=== PATIENT | male | born 1970 | race Caucasian/White ===

== ENCOUNTER → 2018-01-09 11:37 | Outpatient (REF) | payer MEDICAID, SELFPAY ==
[2018-01-09 14:32] LABS: ALT 38 U/L (12-78); AST 46 U/L (15-37); Albumin 4.2 g/dL (3.4-5.0); Alkaline Phosphatase 92 U/L (46-116); Anion Gap 8.7 mmol/L (3-11); BUN 14 mg/dL (7-18); Bilirubin, Total 0.7 mg/dL (0.2-1.0); CO2 25.3 mmol/L (21.0-32.0); CREATININE 1.14 mg/dL (0.70-1.30); Calcium 8.8 mg/dL (8.5-10.1); Chloride 107 mmol/L (98-107); Cholesterol 183 mg/dL (50-200); Glucose 114 mg/dL (70-100); HDL Cholesterol 37 mg/dL (40-60); LDL CHOLESTEROL 120 mg/dL (<100); Sodium 141 mmol/L (136-145); Total Protein 7.8 g/dL (6.4-8.2); Triglyceride 197 mg/dL (30-150)
== END ==
LOC: NCHCN 11:37
PROVIDERS: PCP Nurse Practitioner; Visit Provider Nurse Practitioner
DX: I10 Essential (primary) hypertension (principal); E88.81 Metabolic syndrome and other insulin resistance
CPT/HCPCS: 80053; 80061; 83721

== ENCOUNTER 2018-10-18 19:30 | Emergency (ER) | payer MEDICAID, SELFPAY ==
[2018-10-18 19:34] VITALS: BP 145/105; PULSE 85; RESP 18; TEMP 36.5; O2SAT 97
--- NOTE | 2018-10-18 19:47 | W.ED.GENAD ---
Discharge Plan Disposition Patient Disposition: HOME Condition: Fair Discharge Details Chief Complaint: Orthopedic Clinical Impression: Sprain of right upper arm Primary Care Provider: Anjali Gómez ED Provider: Dorothy lFores Home Meds and New Rx's Prescriptions: Continued aspirin 325 MG tablet 1 - 2 tab PO PRN PRNRF: 0 lisinopril 40 MG tablet 20 mg PO DAILY RF: 0 ibuprofen 600 mg Tablet 600 mg PO TID PRNRF: 0 Discharge Instructions Instructions: Wrist Sprain (ED) Additional Instructions: Encourage rest, ice, elevation. Tylenol and/or Ibuprofen as needed for discomfort. Please use brace until reevaluated by primary care, please call them tomorrow to schedule appointment. Avoid activities that cause increased pain. If you develop fevers/chills, increased pain or other new/worsening symptoms please seek care urgently once again. Stand Alone Forms: Work Release Referrals: Anjali Gómez [Primary Care Provider] - Discharge Data Discharge Date/Time-TO BE ENTERED AT DEPARTURE: 10/18/18 20:26 Medical Decision Making Patient is a 48-year-old [id number] male presenting today with chief complaint of right forearm pain. He reports that yesterday, while at work, he began having pain on the dorsal radial aspect of his distal forearm. Patient has a notable defined area of swelling, proximal 4 cm x 3 cm. No erythema or warmth. This area of fluctuance. I did evaluate with an ultrasound did not see any evidence of fluid collection to suggest an abscess. Patient does have good range of motion of the wrist and hand. Pain is maximal with extension of the thumb against resistance. This causes increased pain at the area of swelling. No pain with palpation over the medial or lateral epicondyle of the elbow, full range of motion without pain. Patient is nontoxic-appearing. And concern for possible tendon rupture although he is not having any pain at the insertion site. Also discussed localized area of swelling from trauma or overuse. Patient will be placed in a thumb spica to immobilize and give small amount of compression. I encouraged rice. Advised follow-up with primary care for reevaluation. We discussed activities to avoid. Work note was given. We discussed new/worsening symptoms when to seek care urgently once again. All his questions and concerns were addressed and he is in agreement with this plan. HPI General Mode of arrival: ambulatory. Date/Time Provider Initiated Documentation: 10/18/18 19:38. Limitations to Documentation: no limitations. Information obtained by: patient, family (accompanied by significant other) and RN notes reviewed. History of Present Illness 48 year old M presents to the emergency department with the chief complaint of right forearm swelling, described as moderate, with intensity rated at 7. Quality is described as aching, and is localized to the right and upper extremity. Patient reports no radiation. Patient started experiencing this day(s) (1) and it has been constant. Immobilization improves symptom(s), Movement worsens symptoms (worse with extension of thumb and wrist) . Patient notes no other symptoms.. Patient did receive the following treatments prior to arrival, none Related Data Home Medications Medication Instructions Recorded Confirmed aspirin 1 - 2 tab PO PRN PRN 03/16/14 12/23/16 lisinopril 20 mg PO DAILY 12/02/14 10/18/18 ibuprofen 600 mg PO TID PRN 10/18/18 10/18/18 Allergies Allergy/AdvReac Type Severity Reaction Status Date / Time No Known Allergies Allergy Unverified 12/23/16 12:28 General Stated Complaint: Orthopedic ALEXANDR: 4 Review of Systems Constitutional Reports as per HPI, Denies chills, Denies fever(s), Denies headache(s) and Denies weakness ENT Denies headache(s) Cardiovascular Reports as per HPI Respiratory Reports as per HPI and Denies cough Musculoskeletal Reports as per HPI and Denies tingling Integumentary/Breasts Reports as per HPI, Denies rash and Denies wounds Neurologic Reports as per HPI, Denies headache(s), Denies tingling, Denies paresthesias and Denies weakness [facility] Medical History Hypertension (Chronic) Surgical History Colonoscopy - MAC (02/03/16) Social History Smoking/Tobacco Use Status: Former Tobacco Use Alcohol Intake: current Drug use: Never Substance use type: does not use Do you feel safe at home: Yes Do you feel safe in your relationship?: Yes Exam Const General: cooperative, healthy appearing, comfortable, no acute distress, well developed and well groomed Nutritional Appearance: average body habitus and well nourished Orientation: alert and awake Resp Effort & Inspection: normal respiratory effort, able to speak in complete sentences and no respiratory distress Cardio Rate: regular rate Rhythm: regular rhythm Skin General skin exam: no rashes or lesions noted Lesions: no lesions Rashes: no rashes Trauma: no lacerations or abrasions Neuro General: alert and awake Cognition: normal cognition Speech: speech normal Gait: normal gait Motor: muscle tone normal throughout Sensory Exam: no sensory deficits noted Extrem Right upper extremity: full ROM, normal capillary refill, no joint enlargement, elbow/forearm (Swelling as above to radial aspect dorsal forearm) Details: tenderness, swelling and normal ROM; no unusual warmth, no abrasions, no lacerations, no ecchymosis, no crepitus and no deformity, wrist Details: normal to inspection and normal ROM (Patient does have discomfort with extension against resistance); no tenderness and no swelling and hand Details: normal to inspection, neuromotor exam normal and neurosensory exam normal; abnormal to inspection (Patient has a localized area approximately 4 cm x 3 cm of localized swellin) Psych Appearance: grossly normal and well kempt Mental Status: mental status grossly normal Speech and Movement: speech and movement normal Course Vital Signs Temperature 36.5 C 10/18/18 19:34 Pulse 85 10/18/18 19:34 Respiratory Rate 18 10/18/18 19:34 Blood Pressure 145/105 H 10/18/18 19:34 Pulse Oximetry 97 10/18/18 19:34 Temperature 36.5 C 10/18/18 19:34 Temperature Source Tympanic 10/18/18 19:34 Pulse 85 10/18/18 19:34 Respiratory Rate 18 10/18/18 19:34 Respiratory Effort Non-Labored 10/18/18 19:43 Blood Pressure 145/105 H 10/18/18 19:34 Blood Pressure Position Sitting 10/18/18 19:34 Pulse Oximetry 97 10/18/18 19:34 Oxygen Delivery Method Room Air 10/18/18 19:34 Oxygen Flow Rate 0 10/18/18 19:34 Pain Level 7 10/18/18 19:34 Comment 10/18/18 19:34
[2018-10-18 20:23] VITALS: BP 145/105; PULSE 85; RESP 18; O2SAT 97
--- NOTE | 2018-10-18 20:26 | ED.GENADUL_ITS ---
Discharge Plan Disposition Patient Disposition: HOME Condition: Fair Discharge Details Chief Complaint: Orthopedic Clinical Impression: Sprain of right upper arm Primary Care Provider: Anjali Gómez ED Provider: Dorothy Flores Home Meds and New Rx's Prescriptions: Continued aspirin 325 MG tablet 1 - 2 tab PO PRN PRNRF: 0 lisinopril 40 MG tablet 20 mg PO DAILY RF: 0 ibuprofen 600 mg Tablet 600 mg PO TID PRNRF: 0 Discharge Instructions Instructions: Wrist Sprain (ED) Additional Instructions: Encourage rest, ice, elevation. Tylenol and/or Ibuprofen as needed for discomfort. Please use brace until reevaluated by primary care, please call them tomorrow to schedule appointment. Avoid activities that cause increased pain. If you develop fevers/chills, increased pain or other new/worsening symptoms please seek care urgently once again. Stand Alone Forms: Work Release Referrals: Anjali Gómez [Primary Care Provider] - Discharge Data Discharge Date/Time-TO BE ENTERED AT DEPARTURE: 10/18/18 20:26 Medical Decision Making Patient is a 48-year-old [id number] male presenting today with chief complaint of right forearm pain. He reports that yesterday, while at work, he began having pain on the dorsal radial aspect of his distal forearm. Patient has a notable defined area of swelling, proximal 4 cm x 3 cm. No erythema or warmth. This area of fluctuance. I did evaluate with an ultrasound did not see any evidence of fluid collection to suggest an abscess. Patient does have good range of motion of the wrist and hand. Pain is maximal with extension of the thumb against resistance. This causes increased pain at the area of swelling. No pain with palpation over the medial or lateral epicondyle of the elbow, full range of motion without pain. Patient is nontoxic-appearing. And concern for possible tendon rupture although he is not having any pain at the insertion site. Also discussed localized area of swelling from trauma or overuse. Patient will be placed in a thumb spica to immobilize and give small amount of compression. I encouraged rice. Advised follow-up with primary care for reevaluation. We discussed activities to avoid. Work note was given. We discussed new/worsening symptoms when to seek care urgently once again. All his questions and concerns were addressed and he is in agreement with this plan. HPI General Mode of arrival: ambulatory . Date/Time Provider Initiated Documentation: 10/18/18 19:38 . Limitations to Documentation: no limitations . Information obtained by: patient, family (accompanied by significant other) and RN notes reviewed . History of Present Illness 48 year old M presents to the emergency department with the chief complaint of right forearm swelling, described as moderate, with intensity rated at 7. Quality is described as aching, and is localized to the right and upper extremity. Patient reports no radiation. Patient started experiencing this day(s) (1) and it has been constant. Immobilization improves symptom(s), Movement worsens symptoms (worse with extension of thumb and wrist) . Patient notes no other symptoms.. Patient did receive the following treatments prior to arrival, none Related Data Home Medications Medication Instructions Recorded Confirmed aspirin 1 - 2 tab PO PRN PRN 03/16/14 12/23/16 lisinopril 20 mg PO DAILY 12/02/14 10/18/18 ibuprofen 600 mg PO TID PRN 10/18/18 10/18/18 Allergies Allergy/AdvReac Type Severity Reaction Status Date / Time No Known Allergies Allergy Unverified 12/23/16 12:28 General Stated Complaint: Orthopedic ALEXANDR: 4 Review of Systems Constitutional Reports as per HPI, Denies chills, Denies fever(s), Denies headache(s) and Denies weakness ENT Denies headache(s) Cardiovascular Reports as per HPI Respiratory Reports as per HPI and Denies cough Musculoskeletal Reports as per HPI and Denies tingling Integumentary/Breasts Reports as per HPI, Denies rash and Denies wounds Neurologic Reports as per HPI, Denies headache(s), Denies tingling, Denies paresthesias and Denies weakness [facility] Medical History Hypertension (Chronic) Surgical History Colonoscopy - MAC (02/03/16) Social History Smoking/Tobacco Use Status: Former Tobacco Use Alcohol Intake: current Drug use: Never Substance use type: does not use Do you feel safe at home: Yes Do you feel safe in your relationship?: Yes Exam Const General: cooperative, healthy appearing, comfortable, no acute distress, well developed and well groomed Nutritional Appearance: average body habitus and well nourished Orientation: alert and awake Resp Effort & Inspection: normal respiratory effort, able to speak in complete sentences and no respiratory distress Cardio Rate: regular rate Rhythm: regular rhythm Skin General skin exam: no rashes or lesions noted Lesions: no lesions Rashes: no rashes Trauma: no lacerations or abrasions Neuro General: alert and awake Cognition: normal cognition Speech: speech normal Gait: normal gait Motor: muscle tone normal throughout Sensory Exam: no sensory deficits noted Extrem Right upper extremity: full ROM, normal capillary refill, no joint enlargement, elbow/forearm (Swelling as above to radial aspect dorsal forearm) Details: tenderness, swelling and normal ROM; no unusual warmth, no abrasions, no lacerations, no ecchymosis, no crepitus and no deformity, wrist Details: normal to inspection and normal ROM (Patient does have discomfort with extension agains t resistance); no tenderness and no swelling and hand Details: normal to inspection, neuromotor exam normal and neurosensory exam normal; abnormal to inspection (Patient has a localized area approximately 4 cm x 3 cm of localized swellin) Psych Appearance: grossly normal and well kempt Mental Status: mental status grossly normal Speech and Movement: speech and movement normal Course Vital Signs Temperature 36.5 C 10/18/18 19:34 Pulse 85 10/18/18 19:34 Respiratory Rate 18 10/18/18 19:34 Blood Pressure 145/105 H 10/18/18 19:34 Pulse Oximetry 97 10/18/18 19:34 Temperature 36.5 C 10/18/18 19:34 Temperature Source Tympanic 10/18/18 19:34 Pulse 85 10/18/18 19:34 Respiratory Rate 18 10/18/18 19:34 Respiratory Effort Non-Labored 10/18/18 19:43 Blood Pressure 145/105 H 10/18/18 19:34 Blood Pressure Position Sitting 10/18/18 19:34 Pulse Oximetry 97 10/18/18 19:34 Oxygen Delivery Method Room Air 10/18/18 19:34 Oxygen Flow Rate 0 10/18/18 19:34 Pain Level 7 10/18/18 19:34 Comment 10/18/18 19:34
== END 2018-10-18 20:26 | disposition home or self-care (01) ==
PROVIDERS: Emergency Provider Physician Assistant; PCP Nurse Practitioner
DX: S56.911A Strain of unspecified muscles, fascia and tendons at forearm level, right arm, initial encounter (principal); X58.XXXA Exposure to other specified factors, initial encounter; Y99.0 Civilian activity done for income or pay
CPT/HCPCS: 99282; L3807

== ENCOUNTER 2019-05-22 15:15 | Emergency (ER) | payer SELFPAY ==
[2019-05-22 15:29] VITALS: BP 106/69; PULSE 76; RESP 20; TEMP 36.8; O2SAT 96
--- NOTE | 2019-05-22 15:43 | DI.RAD_ITS ---
EXAM: XR HAND RT COMPLETE INDICATION: trauma, pain. COMPARISON: No exams were available for comparison TECHNIQUE: 2D digital imaging was performed. FINDINGS: No fracture or dislocation is seen. IMPRESSION: Negative right hand.
--- NOTE | 2019-05-22 16:20 | ED.GENADUL_ITS ---
Discharge Plan Disposition Patient Disposition: HOME Condition: Stable Discharge Details Chief Complaint: Orthopedic Clinical Impression: Hand pain Primary Care Provider: Anjali Gómez ED Provider: Shannan Fonseca Home Meds and New Rx's Prescriptions: No Action aspirin 325 MG tablet 1 - 2 tab PO PRN PRNRF: 0 lisinopril 40 MG tablet 20 mg PO DAILY RF: 0 ibuprofen 600 mg Tablet 600 mg PO TID PRNRF: 0 Discharge Instructions Instructions: Contusion in Adults (ED), Scaphoid Fracture (ED) Additional Instructions: I have concerned given your area of tenderness for possible scaphoid injury. I provided information regarding scaphoid fracture although there is no clear evidence you have a scaphoid fracture today this is my concern if you are not improving in the next 7 to 10 days. Have prompt follow-up with orthopedics in 1 week to rule out any scaphoid injury as discussed and for repeat x-rays. Wear splint for 1 week Or until able to be cleared by senior it specialist. Ice to the area for swelling. Motrin or Tylenol for discomfort. Rest activities as tolerated. Return for any worsening, concerns or alarming symptoms sooner if needed. Your x-ray of your hand today was normal Referrals: Terrence Matta MD [ [facility] STAFF PHYSICIAN] - Medical Decision Making This is a healthy 49-year-old patient presenting for complaints of right hand pain. Patient reports right hand pain after being struck by a telescoping ladder that slid striking him directly on the hand 2 days ago. This injury did occur at work. Patient was encouraged to have reevaluation as he was complaining of persistent pain today. Patient reports pain with specific range of motion's. Again points to the snuffbox as his maximum site of pain. Benign physical exam of the arm, mild pain at the snuffbox. No associated ligamentous findings. No flexion extension deficits. No sensation deficits. 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 X-ray today reveals EXAM: XR HAND RT COMPLETE INDICATION: trauma, pain. COMPARISON: No exams were available for comparison TECHNIQUE: 2D digital imaging was performed. FINDINGS: No fracture or dislocation is seen. IMPRESSION: Negative right hand. Given patient's site of pain I am concerned primarily with the snuffbox therefore wrist x-ray was ordered. Wrist: PROCEDURE INFORMATION: Exam: XR Right Wrist Exam date and time: 05/22/2019 4:39 PM Age: 49 years old Clinical indication: Injury or trauma; Initial encounter; Blunt trauma (contusions or hematomas; Wrist; Right TECHNIQUE: Imaging protocol: XR Right wrist. Views: 3 or more views. COMPARISON: CR XR HAND RT COMPLETE 12/14/2019 15:43 FINDINGS: Bones/joints: Unremarkable. Soft tissues: Unremarkable. IMPRESSION: No evidence for acute bony injury. If clinical symptoms persist recommend followup film in 7-10 days. Patient discharged in a thumb spica wrist splint. Encouraged reevaluation with orthopedics in 1 week for persistence of symptoms. Patient reports his understanding. Discussed concerns of possible scaphoid injury despite negative x-rays. Ervin encouraged. Orthopedic referral provided. Patient reports his understanding and agrees with plan of care. The patient was stable and requested discharge. Prior to discharge, my usual and customary return precautions were reviewed with the patient - this included follow-up instructions and reasons to return to the Emergency Department if conditions worsens, does not improve as expected, or other new concerns arise. HPI General Date/Time Provider Initiated Documentation: 05/22/19 15:33 . HPI Narrative: Is a 49-year-old patient who reports at work a large ladder slid, 1 of the telescoping metal pieces of the ladder fell directly onto his hand beneath striking his right hand. Patient points to the area of his snuffbox of maximum pain. Patient reports pain with specific range of motion. Patient denies open wounds. Patient denies any other sites of pain or injury. Injury occurred yesterday. Patient denies obvious numbness, tingling or weakness. No wrist pain or proximal complaints. Related Data Home Medications Medication Instructions Recorded Confirmed aspirin 1 - 2 tab PO PRN PRN 03/16/14 05/22/19 lisinopril 20 mg PO DAILY 12/02/14 05/22/19 ibuprofen 600 mg PO TID PRN 10/18/18 05/22/19 Allergies Allergy/AdvReac Type Severity Reaction Status Date / Time No Known Allergies Allergy Unverified 05/22/19 15:33 General Stated Complaint: Orthopedic ALEXANDR: 4 Review of Systems All systems reviewed & are unremarkable except as noted in HPI and below ENT Ears, Nose, Mouth, and Throat: Denies neck pain Musculoskeletal Musculoskeletal: Denies abnormal gait, Denies back pain, Denies deformity, Denies limited range of motion, Denies neck pain, Denies numbness and Denies tingling Integumentary/Breasts Skin/Breast: Denies wounds Neurologic Neurologic: Denies abnormal gait, Denies numbness, Denies tingling and Denies paresthesias [facility] Medical History Hypertension (Chronic) Social History Smoking/Tobacco Use Status: Former Tobacco Use Alcohol Intake: former Drug use: Never Substance use type: does not use Do you feel safe at home: Yes Do you feel safe in your relationship?: Yes Exam Narrative Exam Narrative: CONST: Healthy appearing patient, in no acute distress. Well hydrated. Alert and oriented. MUSCULOSKELETAL: Right arm: No elbow pain with palpation. Supination pronation intact at the elbow. Flexion extension intact at the elbow. No forearm pain with palpation. No wrist pain with palpation. Flexion extension intact at the wrist. No focal pain with palpation through the hand. Flexion extension intact at the wrist as well as the thumb. Nothing to indicate a ligamentous injury at this time. No swelling, ecchymosis or wounds. Sensation intact throughout the hand and wrist. 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 SKIN: Normal. Dry. No rashes. NEURO: Alert and awake. Speech clear. PSYCH: Normal affect. Cooperative. Course Vital Signs Vital signs: Vital Signs Temperature 36.8 C 05/22/19 15:29 Pulse 76 05/22/19 15:29 Respiratory Rate 05/22/19 15:29 Blood Pressure 106/69 05/22/19 15:29 Pulse Oximetry 96 05/22/19 15:29 Temperature 36.8 C 05/22/19 15:29 Temperature Source Skin 05/22/19 15:29 Pulse 76 05/22/19 15:29 Respiratory Rate 20 05/22/19 15:29 Respiratory Effort Non-Labored 05/22/19 15:32 Blood Pressure 106/69 05/22/19 15:29 Blood Pressure Position Sitting 05/22/19 15:29 Pulse Oximetry 96 05/22/19 15:29 Oxygen Delivery Method Room Air 05/22/19 15:29 Oxygen Flow Rate 0 05/22/19 15:29 Pain Level 0 05/22/19 15:29
--- NOTE | 2019-05-22 16:36 | DI.RAD_ITS ---
EXAM: XR WRIST RT COMPL NAVICULAR CLINICAL HISTORY: pain, injury TECHNIQUE: COMPARISON: No exams were available for comparison FINDINGS: Four views were obtained. Carpal alignment appears within normal limits. No fracture seen. IMPRESSION:
--- NOTE | 2019-05-22 16:54 | DI.VRAD_ITS ---
PROCEDURE INFORMATION: Exam: XR Right Wrist Exam date and time: 05/22/2019 4:39 PM Age: 49 years old Clinical indication: Injury or trauma; Initial encounter; Blunt trauma (contusions or hematomas; Wrist; Right TECHNIQUE: Imaging protocol: XR Right wrist. Views: 3 or more views. COMPARISON: CR XR HAND RT COMPLETE 12/14/2019 15:43 FINDINGS: Bones/joints: Unremarkable. Soft tissues: Unremarkable. IMPRESSION: No evidence for acute bony injury. If clinical symptoms persist recommend followup film in 7-10 days. Dictated and Authenticated by: Alondra Hunt MD. Ordering:KARLY Campbell MD
== END 2019-05-22 17:06 | disposition home or self-care (01) ==
PROVIDERS: Emergency Provider Physician Assistant; PCP Nurse Practitioner
DX: S69.81XA Other specified injuries of right wrist, hand and finger(s), initial encounter (principal); M79.641 Pain in right hand; W20.8XXA Other cause of strike by thrown, projected or falling object, initial encounter; Y99.0 Civilian activity done for income or pay; I10 Essential (primary) hypertension
CPT/HCPCS: 29125; 99284; 73110; 73130; 99283; L3807

== ENCOUNTER 2020-11-22 14:31 | Emergency (ER) | payer MEDICAID, SELFPAY ==
[2020-11-22] VITALS (75 sets, daily range): BP systolic 137–216; BP diastolic 94–134; PULSE 78–107; RESP 12–24; TEMP 36.3–36.6; O2SAT 95–97
--- NOTE | 2020-11-22 14:30 | RT.EKG_ITS ---
APPROVED REPORT Exam: Resting ECG Reason for Exam: weakness, dizzy Patient Location: E HR:99 bpm ECG Measurements Heart Rate 99 AXIS AZ 179 P 49 QRSd 100 QRS 21 QT 353 T 22 QTc 454 Conclusion Sinus rhythm...normal P axis, V-rate 60- 99
[2020-11-22] MEDS: Normal Saline 250 ML 500 ML IV (15:27)
[2020-11-22] MEDS: diazePAM 5 MG TAB PO (15:28)
[2020-11-22] MEDS: Labetalol 100 MG/20 ML VIAL 20 MG IVP (15:28)
[2020-11-22 15:32] LABS: Abs Immature Grans 0.08 10^3/uL (0.0-0.06); Absolute Basophil Count 0.05 10^3/uL (0.0-0.2); Absolute Eosinophil Count 0.25 10^3/uL (0.0-0.7); Absolute Lymphocyte Count 1.44 10^3/uL (1.2-3.4); Absolute Monocyte Count 0.58 10^3/uL (0.1-0.8); Absolute Neutrophil Count 6.13 10^3/uL (1.2-6.7); Basophils % 0.6; Eosinophils % 2.9; HCT 44.3 % (40.0-50.0); HGB 15.2 g/dL (13.5-17.5); Immature Grans % 0.9; Lymphocytes % 16.9; MCH 30.2 pg (27.0-33.0); MCHC 34.3 % (32.0-36.0); MCV 87.9 fL (80-95); MPV 10.6 fL (8.0-11.0); Monocytes % 6.8; Neutrophils % 71.9; Nucleated RBC 0 %; Platelet Count 176 10^3/uL (130-400); RBC 5.04 10^6/uL (4.36-5.78); RDW 12.8 % (11.8-14.1); RDW-SD 40.9 fL; WBC 8.53 10^3/uL (4.4-10.8)
[2020-11-22 15:49] LABS: ALT 107 U/L (16-63); AST 51 U/L (15-37); Alkaline Phosphatase 140 U/L (46-116); BUN 17 mg/dL (7-18); Bilirubin, Total 0.4 mg/dL (0.2-1.0); CREATININE 1.1 mg/dL (0.70-1.30); Calcium 8.7 mg/dL (8.5-10.1); Chloride 106 mmol/L (98-107); Glucose 101 mg/dL (74-106); Potassium 3.9 mmol/L (3.5-5.1); Sodium 143 mmol/L (136-145)
[2020-11-22 15:52] LABS: Troponin I < 0.05 ng/mL (<0.06)
--- NOTE | 2020-11-22 16:06 | W.ED.GENAD ---
Discharge Plan Disposition Patient Disposition: HOME Condition: Stable Discharge Details Clinical Impression: Hypertension, Anxiety, Elevated liver enzymes Primary Care Provider: Anjali Gómez ED Provider: Sarwat James Home Meds and New Rx's Prescriptions: Continued aspirin 325 MG tablet 1 - 2 tab PO PRN PRNRF: 0 lisinopril 40 MG tablet 20 mg PO DAILY RF: 0 ibuprofen 600 mg Tablet 600 mg PO TID PRNRF: 0 Discharge Instructions Instructions: Hypertension (ED), Anxiety (ED) Additional Instructions: Please take antihypertensive medication as prescribed. You need to make some lifestyle changes including cutting back on alcohol intake significantly. You need to reduce stress in your work life and maintain a healthy worklife balance. Please contact your primary care physician to arrange follow-up. Please be sure to request COVID-19 vaccination or seek vaccination at local pharmacy. Return to the ER for any worsening or new concerning symptoms. Referrals: Anjali Gómez [Primary Care Provider] - Discharge Data Discharge Date/Time-TO BE ENTERED AT DEPARTURE: 11/22/20 17:41 Medical Decision Making 16:12?- 50-year-old male with history of anxiety and hypertension, here with lightheadedness, generalized weakness, anxiety. Patient is hypertensive and tachycardic. Concern for hypertensive urgency versus anxiety attack. Patient was given labetalol 20 mg IV as well as Valium 5 mg p.o. Screening ECG was reviewed and interpreted by me: Sinus rhythm 99 bpm, normal axis, no STEMI, please see report. Labs reviewed and he does have transaminitis noted. I suspect this is secondary to alcohol use disorder. Blood pressure was reassessed at did improve after labetalol. Still hypertensive 180/112. I will give his lisinopril 20mg orally as previously prescribed. 1734 --blood pressure significantly improved. Patient resting comfortably. Asymptomatic. Patient was ambulated around the emergency from and with no recurrent symptoms. Plan will be for restart lisinopril and follow-up with PCP. Disposition decision was made weighing the risks and benefits of hospitalization versus outpatient treatment, the risk for further decompensation, and the patient's wishes. The patient was stable and requested discharge. Prior to discharge, my usual and customary return precautions were reviewed with the patient - this included follow-up instructions and reason to return to the emergency department if condition worsens, does not improve as expected, or other new concerns arise. Lab Data Lab results reviewed: Yes I reviewed the patient's lab results. Labs: Laboratory Tests Range/Units 11/22/20 11/22/20 15:20 15:20 WBC (4.4-10.8) 10^3/uL 8.53 RBC (4.36-5.78) 10^6/uL 5.04 Hgb (13.5-17.5) g/dL 15.2 Hct (40.0-50.0) % 44.3 MCV (80-95) fL 87.9 MCH (27.0-33.0) pg 30.2 MCHC (32.0-36.0) % 34.3 RDW (11.8-14.1) % 12.8 Plt Count (130-400) 10^3/uL 176 MPV (8.0-11.0) fL 10.6 Immature Gran % 0.9 Neutrophils % 71.9 Lymphocytes % 16.9 Monocytes % 6.8 Eosinophils % 2.9 Basophils % 0.6 Nucleated RBC % % 0 Absolute Neutrophils (1.2-6.7) 10^3/uL 6.13 Absolute Lymphocytes (1.2-3.4) 10^3/uL 1.44 Absolute Monocytes (0.1-0.8) 10^3/uL 0.58 Absolute Eosinophils (0.0-0.7) 10^3/uL 0.25 Absolute Basophils (0.0-0.2) 10^3/uL 0.05 Sodium (136-145) mmol/L 143 Potassium (3.5-5.1) mmol/L 3.9 Chloride (98-107) mmol/L 106 Carbon Dioxide (21.0-32.0) mmol/L 26.0 Anion Gap (3-11) mmol/L 11.0 BUN (7-18) mg/dL 17 Creatinine (0.70-1.30) mg/dL 1.1 Estimated GFR/1.73 m2 (mL/min/1.73m2) >= 60.00 Glucose (74-106) mg/dL 101 Calcium (8.5-10.1) mg/dL 8.7 Total Bilirubin (0.2-1.0) mg/dL 0.4 AST (15-37) U/L 51 H ALT (16-63) U/L 107 H Alkaline Phosphatase (46-116) U/L 140 H Troponin I (<0.06) ng/mL < 0.05 Total Protein (6.4-8.2) g/dL 8.0 Albumin (3.4-5.0) g/dL 4.0 HPI General Mode of arrival: ambulatory. Date/Time Provider Initiated Documentation: 11/22/20 14:54. Limitations to Documentation: no limitations. Information obtained by: patient. HPI Narrative: 50-year-old male with prior history of hypertension presents with chief complaint of generally not feeling well. Patient notes has not been feeling well for the past 2 to 3 weeks. He feels dehydrated, lacks energy, has experienced presyncope today walking at the grocery store. He also notes some muscle cramping posterior thighs. Patient states he has had a lot of stress and has been working a lot recently he also notes significant anxiety over the past few weeks. Patient states that he has not been on his antihypertensives for months. He had lost weight and had discontinued lisinopril. Over the past winter he notes he is put on weight and has not been taking care of his body. Patient does consume a heavy amount of alcohol daily for the past month. He did consume alcohol last night. Patient notes that if he does not drink he feels jittery. He does seem motivated to reduce alcohol consumption. He is not interested in speaking with both his [facility] recovery auditor at this time. Related Data Home Medications Medication Instructions Recorded Confirmed aspirin 1 - 2 tab PO PRN PRN 03/16/14 11/22/20 lisinopril 20 mg PO DAILY 12/02/14 11/22/20 ibuprofen 600 mg PO TID PRN 10/18/18 11/22/20 Allergies Allergy/AdvReac Type Severity Reaction Status Date / Time No Known Allergies Allergy Unverified 11/22/20 14:46 General Stated Complaint: GenMedical ALEXANDR: 3 Review of Systems All systems reviewed & are unremarkable except as noted in HPI and below Constitutional Constitutional: Denies fever(s) and Reports lethargy Respiratory Respiratory: Denies cough PFS Medical History Hypertension Surgical History Colonoscopy - MAC (02/03/16) Social History Smoking/Tobacco Use Status: Former Tobacco Use Smoking risk assessment performed?: Yes Alcohol Intake: former Drug use: Never Substance use type: does not use Do you feel safe at home: Yes Do you feel safe in your relationship?: Yes Exam Const General: cooperative and no acute distress HENMT Mouth: moist mucous membranes Eyes Conjunctivae: normal conjunctivae Sclera: normal sclerae Neck Neck: trachea midline and supple Resp Auscultation: clear to auscultation bilaterally, no rales, no rhonchi and no wheezes Cardio Jugular venous pressure: no JVD Rate: tachycardic Rhythm: regular rhythm Heart Sounds: no murmurs GI Palpation: soft, not firm, no guarding, no masses, not rigid and nontender Skin General skin exam: no rashes or lesions noted Neuro General: patient alert, patient awake, patient oriented x3 and tone normal Cranial Nerves: PERRL, accommodation normal, EOM intact bilaterally and facial strength normal Cognition: normal cognition Speech: speech normal Motor: muscle tone normal throughout and strength 5/5 throughout Sensory Exam: no sensory deficits noted Extrem General: no calf tenderness and no edema Psych Appearance: grossly normal Mental Status: mental status grossly normal Speech and Movement: speech and movement normal Mood: anxious mood Course Vital Signs Vital signs: Vital Signs Temperature 36.3 C L 11/22/20 14:40 Pulse 97 H 11/22/20 14:40 Respiratory Rate 19 11/22/20 14:40 Blood Pressure 201/134 H 11/22/20 14:40 Pulse Oximetry 95 11/22/20 14:40 Temperature 36.3 C L 11/22/20 14:40 Temperature Source Skin 11/22/20 14:40 Pulse 99 H 11/22/20 15:28 Respiratory Rate 19 11/22/20 14:40 Respiratory Effort Non-Labored 11/22/20 14:40 Blood Pressure 180/112 H 11/22/20 15:28 Blood Pressure Position Supine 11/22/20 14:40 Pulse Oximetry 95 11/22/20 14:40 Oxygen Delivery Method Room Air 11/22/20 14:40 Oxygen Flow Rate 0 11/22/20 14:40 Pain Level 0 11/22/20 14:40 Lab/Test Results Lab/Test Results: Laboratory Tests Range/Units 11/22/20 11/22/20 15:20 15:20 WBC (4.4-10.8) 10^3/uL 8.53 RBC (4.36-5.78) 10^6/uL 5.04 Hgb (13.5-17.5) g/dL 15.2 Hct (40.0-50.0) % 44.3 MCV (80-95) fL 87.9 MCH (27.0-33.0) pg 30.2 MCHC (32.0-36.0) % 34.3 RDW (11.8-14.1) % 12.8 Plt Count (130-400) 10^3/uL 176 MPV (8.0-11.0) fL 10.6 Immature Gran % 0.9 Neutrophils % 71.9 Lymphocytes % 16.9 Monocytes % 6.8 Eosinophils % 2.9 Basophils % 0.6 Nucleated RBC % % 0 Absolute Neutrophils (1.2-6.7) 10^3/uL 6.13 Absolute Lymphocytes (1.2-3.4) 10^3/uL 1.44 Absolute Monocytes (0.1-0.8) 10^3/uL 0.58 Absolute Eosinophils (0.0-0.7) 10^3/uL 0.25 Absolute Basophils (0.0-0.2) 10^3/uL 0.05 Sodium (136-145) mmol/L 143 Potassium (3.5-5.1) mmol/L 3.9 Chloride (98-107) mmol/L 106 Carbon Dioxide (21.0-32.0) mmol/L 26.0 Anion Gap (3-11) mmol/L 11.0 BUN (7-18) mg/dL 17 Creatinine (0.70-1.30) mg/dL 1.1 Estimated GFR/1.73 m2 (mL/min/1.73m2) >= 60.00 Glucose (74-106) mg/dL 101 Calcium (8.5-10.1) mg/dL 8.7 Total Bilirubin (0.2-1.0) mg/dL 0.4 AST (15-37) U/L 51 H ALT (16-63) U/L 107 H Alkaline Phosphatase (46-116) U/L 140 H Troponin I (<0.06) ng/mL < 0.05 Total Protein (6.4-8.2) g/dL 8.0 Albumin (3.4-5.0) g/dL 4.0
[2020-11-22] MEDS: Lisinopril 20 MG TAB PO (16:33)
--- NOTE | 2020-11-22 17:36 | NUR.NOTE ---
Nursing Note: Referral faxed to PCP for elevated B/P, alcohol use disorder interested in cutting back, needs COVID vaccine. Within 10 days. Polina Bhat
== END 2020-11-22 17:41 | disposition home or self-care (01) ==
PROVIDERS: Emergency Provider Student in an Organized Health Care Education/Training Program; PCP Nurse Practitioner
DX: I10 Essential (primary) hypertension (principal); F41.9 Anxiety disorder, unspecified; R74.01 Elevation of levels of liver transaminase levels
CPT/HCPCS: 80053; 93005; 96374; 99284; 84484; 85025; 93010

== ENCOUNTER 2021-06-18 13:54 | Outpatient (CLI) | payer MEDICAID, SELFPAY ==
--- NOTE | 2021-06-18 13:45 | RT.EKG_ITS ---
APPROVED REPORT Exam: Resting ECG Reason for Exam: Chest discomfort Patient Location: O HR:121 bpm ECG Measurements Heart Rate 121 AXIS HI 163 P 42 QRSd 97 QRS 42 QT 323 T 28 QTc 459 Conclusion Sinus tachycardia...rate> 99 Otherwise normal
== END 2021-06-18 13:55 | disposition home or self-care (01) ==
LOC: DI.CM 13:54
PROVIDERS: PCP Nurse Practitioner; Visit Provider Nurse Practitioner Family
DX: R07.89 Other chest pain (principal)
CPT/HCPCS: 93010

== ENCOUNTER 2021-06-18 14:58 | Emergency (ER) | payer MEDICAID, SELFPAY ==
--- NOTE | 2021-06-18 15:00 | RT.EKG_ITS ---
APPROVED REPORT Exam: Resting ECG Reason for Exam: SOB Patient Location: E HR:115 bpm ECG Measurements Heart Rate 115 AXIS TX 168 P 50 QRSd 98 QRS 47 QT 325 T 53 QTc 449 Conclusion Sinus tachycardia...rate> 99
[2021-06-18 15:05] VITALS: BP 178/112; PULSE 117; RESP 27; TEMP 37.1; O2SAT 96
--- NOTE | 2021-06-18 15:15 | DI.CT_ITS ---
Exam(s) CT CHEST PE CTA EXAM: CT CHEST PE CTA CLINICAL HISTORY: SOB, Cough, Tachycardia, R/O PE, PNA. TECHNIQUE: Imaging Protocol: CT angiography of the chest was performed using pulmonary embolus gabe col. Multi planar reconstructions were performed. CONTRAST MATERIAL: Intravenous: Omnipaque 350 Contrast volume: 100 cc COMPARISON: No exams were available for comparison FINDINGS: CHEST: PULMONARY ARTERIES: Less than optimal bolus timing. There are no obvious intraluminal filling defect s to suggest acute pulmonary emboli out to the segmental level.. LUNGS: Atelectasis/mild infiltrate noted in the lingular segment of the left lung. No other signific ant focal pulmonary findings.. No pleural effusions. No significant focal findings in the trachea a nd mainstem bronchi. There is no bronchiectasis. MEDIASTINUM: There is no hilar nor mediastinal adenopathy. There appears to be a possible nodule in e ach thyroid lobe. The thyroid gland is only partially included in the field of view of this chest st udy. CARDIAC: Heart size is upper normal. There is no pericardial effusion.Caliber of the thoracic aorta is within normal limits. There is no significant shift of the interventricular septum. PARTIALLY VISUALIZED UPPERMOST ABDOMEN: No obvious significant findings. OSSEOUS: No significant osseous lesions.. IMPRESSION: 1. No evidence of acute pulmonary emboli. No evidence of pulmonary infarction.There is small area of infiltrate or atelectasis in the lingular segment of the left lung. 2. No intrathoracic adenopathy. 3. No pleural effusions. RADIATION DOSE DELIVERED: 489.39mGy.cm Total DLP DATA REPOSITORY: All CT scans at this facility are submitted to the National Radiology Data Registry (NRDR) Dose Index Registry (DIR) with the [employer] (ACR). RADIATION OPTIMIZATION: All CT scans at this facility use at least one of these dose optimization te chniques: automated exposure control; mA and/or kV adjustment per patient size (includes targeted exa ms where dose is matched to clinical indication); or iterative reconstruction.
--- NOTE | 2021-06-18 15:26 | W.ED.GENAD ---
Discharge Plan Discharge Details Chief Complaint: GenMedical Clinical Impression: URI (upper respiratory infection), Thyroid nodule Primary Care Provider: Anjali Gómez ED Provider: Dottie Ware Home Meds and New Rx's Prescriptions: New azithromycin 250 mg tablet See Rx Instructions .ROUTE .COMPLEX 6 Days Qty: 6 RF: 0 No Action aspirin 325 MG tablet 1 - 2 tab PO PRN PRNRF: 0 lisinopril 40 MG tablet 20 mg PO DAILY RF: 0 ibuprofen 600 mg Tablet 600 mg PO TID PRNRF: 0 Discharge Instructions Instructions: Upper Respiratory Infection (ED), Thyroid Nodules (ED) Additional Instructions: At this time there is no evidence for blood clot in your lung. However there was some nodules which were found on the thyroid gland. Blood test for your thyroid immediately hormone is within normal limits. They are recommending outpatient follow-up ultrasound of your thyroid gland. I will place you on a care management list to help you follow-up with your primary care provider and get this ultrasound ordered. They should call you by Monday or Monday. Follow up with primary care provider in 3-5 days. Return to ED sooner if any worsening or concerns. Increase oral fluids. A prescription for antibiotics was sent to the pharmacy on file. Use the albuterol inhaler with 2 puffs every 4 hours as needed for shortness of breath. Medical Decision Making 51-year-old male presents to the ER with chief complaint of shortness of breath, dry cough with productive sputum and chest discomfort. He was seen at [facility] today prior to arrival instructed to present here. He is tachycardic and hypertensive upon arrival heart rate is 1 8, blood pressure is 170/130. He does take 20 mg lisinopril nightly. Last taken last night. He reports 2 days ago started have URI type symptoms again and body aches. Denies any nausea vomiting diarrhea fever or chills. Only past medical history of hypertension and anxiety. He does endorse drinking 2-3 drinks nightly none in the last 2 nights. No other associated symptoms. At this time we will do cardiac work-up, including serial troponin, chest CT to rule out PE. Other differential includes pneumonia. Patient instructed on plan of care he verbalized understanding. I will also give him an additional 20 mg lisinopril which he normally takes at home. CTA Chest R/O PE: FINDINGS: Pulmonary arteries: No evidence of pulmonary embolus to the segmental level. Aorta: No aneurysm of the aorta. No dissection of the aorta. Thyroid: 18 mm nodule in the left lobe of the thyroid. 2.5 cm nodule in the right lobe of the thyroid. Recommend thyroid ultrasound. Lungs: Unremarkabl minimal opacities in the lingula may represent atelectasis No consolidation. No masses. Pleural spaces: Unremarkable. No pneumothorax. No pleural effusion. Heart: Unremarkable. No cardiomegaly. No pericardial effusion. Lymph nodes: Unremarkable. No enlarged lymph nodes. Bones/joints: Unremarkable. No acute fracture. Soft tissues: Unremarkable. IMPRESSION: 1. No evidence of pulmonary embolus to the segmental level. 2. 18 mm nodule in the left lobe of the thyroid. 2.5 cm nodule in the right lobe of the thyroid. Recommend thyroid ultrasound. Thank you for allowing us to participate in the care of your patient. Dictated and Authenticated by: Vivek Rudolph MD TSH with Refractory T4 Added on. Will reccommend outpatient thyroid US and follow up with PCP. Labs noted below. TSH within normal limits. I discussed follow-up care and CT results with patient verbalized standing. Patient placed on care management list for PCP establishment and the need for thyroid ultrasound. Instructed patient to take his normal blood pressure medication this evening as well. Patient discharged in stable condition. This text was generated using [employer] system, please disregard any oddities of phrase or misspellings. Lab Data Lab results reviewed: Yes I reviewed the patient's lab results. Lab results narrative: Laboratory Tests Range/Units 06/18/21 06/18/21 06/18/21 15:13 15:20 15:20 WBC (4.4-10.8) 10^3/uL 8.34 RBC (4.36-5.78) 10^6/uL 4.94 Hgb (13.5-17.5) g/dL 15.1 Hct (40.0-50.0) % 44.9 MCV (80-95) fL 90.9 MCH (27.0-33.0) pg 30.6 MCHC (32.0-36.0) % 33.6 RDW (11.8-14.1) % 12.8 Plt Count (130-400) 10^3/uL 196 MPV (8.0-11.0) fL 10.2 Immature Gran % 0.5 Neutrophils % 75.9 Lymphocytes % 16.1 Monocytes % 6.0 Eosinophils % 0.8 Basophils % 0.7 Nucleated RBC % % 0 Absolute Neutrophils (1.2-6.7) 10^3/uL 6.33 Absolute Lymphocytes (1.2-3.4) 10^3/uL 1.34 Absolute Monocytes (0.1-0.8) 10^3/uL 0.50 Absolute Eosinophils (0.0-0.7) 10^3/uL 0.07 Absolute Basophils (0.0-0.2) 10^3/uL 0.06 Sodium (136-145) mmol/L 139 Potassium (3.5-5.1) mmol/L 3.7 Chloride (98-107) mmol/L 104 Carbon Dioxide (21.0-32.0) mmol/L 25.0 Anion Gap (3-11) mmol/L 10.0 BUN (7-18) mg/dL 12 Creatinine (0.70-1.30) mg/dL 1.1 Estimated GFR/1.73 m2 (mL/min/1.73m2) >= 60.00 Glucose (74-106) mg/dL 129 H Calcium (8.5-10.1) mg/dL 8.8 Magnesium (1.8-2.4) mg/dL 2.0 Total Bilirubin (0.2-1.0) mg/dL 0.3 AST (15-37) U/L 226 H ALT (16-63) U/L 422 H Alkaline Phosphatase (46-116) U/L 104 Troponin I (<or=60) ng/L < 50 Total Protein (6.4-8.2) g/dL 8.2 Albumin (3.4-5.0) g/dL 4.0 Urine Color (Yellow) Urine Clarity (Clear) Urine pH (5-8) Ur Specific [place] (1.005-1.025) Urine Protein (Negative) mg/dL Urine Ketones (Negative) mg/dL Urine Blood (Negative) Urine Nitrite (Negative) Urine Bilirubin (Negative) Urine Urobilinogen (Up TO 0.2) EU/dL Ur Leukocyte Esterase (Negative) Urine Glucose (Negative) mg/dL COVID-19 Source Cancelled SARS-CoV-2 (PCR) Cancelled Range/Units 02/04/22 02/04/22 15:45 16:40 WBC (4.4-10.8) 10^3/uL RBC (4.36-5.78) 10^6/uL Hgb (13.5-17.5) g/dL Hct (40.0-50.0) % MCV (80-95) fL MCH (27.0-33.0) pg MCHC (32.0-36.0) % RDW (11.8-14.1) % Plt Count (130-400) 10^3/uL MPV (8.0-11.0) fL Immature Gran % Neutrophils % Lymphocytes % Monocytes % Eosinophils % Basophils % Nucleated RBC % % Absolute Neutrophils (1.2-6.7) 10^3/uL Absolute Lymphocytes (1.2-3.4) 10^3/uL Absolute Monocytes (0.1-0.8) 10^3/uL Absolute Eosinophils (0.0-0.7) 10^3/uL Absolute Basophils (0.0-0.2) 10^3/uL Sodium (136-145) mmol/L Potassium (3.5-5.1) mmol/L Chloride (98-107) mmol/L Carbon Dioxide (21.0-32.0) mmol/L Anion Gap (3-11) mmol/L BUN (7-18) mg/dL Creatinine (0.70-1.30) mg/dL Estimated GFR/1.73 m2 (mL/min/1.73m2) Glucose (74-106) mg/dL Calcium (8.5-10.1) mg/dL Magnesium (1.8-2.4) mg/dL Total Bilirubin (0.2-1.0) mg/dL AST (15-37) U/L ALT (16-63) U/L Alkaline Phosphatase (46-116) U/L Troponin I (<or=60) ng/L Total Protein (6.4-8.2) g/dL Albumin (3.4-5.0) g/dL Urine Color (Yellow) Yellow Urine Clarity (Clear) Clear Urine pH (5-8) 6.0 Ur Specific [place] (1.005-1.025) 1.010 Urine Protein (Negative) mg/dL Negative Urine Ketones (Negative) mg/dL Negative Urine Blood (Negative) Negative Urine Nitrite (Negative) Negative Urine Bilirubin (Negative) Negative Urine Urobilinogen (Up TO 0.2) EU/dL 0.2 Ur Leukocyte Esterase (Negative) Negative Urine Glucose (Negative) mg/dL Negative COVID-19 Source Nasal/Nares SARS-CoV-2 (PCR) Negative HPI General Mode of arrival: ambulatory. Date/Time Provider Initiated Documentation: 06/18/21 15:04. Limitations to Documentation: no limitations. Information obtained by: patient, RN notes reviewed and old records reviewed. HPI Narrative: 51-year-old male presents to the ER with chief complaint of shortness of breath, dry cough with productive sputum and chest discomfort. He was seen at [facility] today prior to arrival instructed to present here. He is tachycardic and hypertensive upon arrival heart rate is 1 8, blood pressure is 170/130. He does take 20 mg lisinopril nightly. Last taken last night. He reports 2 days ago started have URI type symptoms again and body aches. Denies any nausea vomiting diarrhea fever or chills. Only past medical history of hypertension and anxiety. He does endorse drinking 2-3 drinks nightly none in the last 2 nights. No other associated symptoms. Related Data Home Medications Medication Instructions Recorded Confirmed aspirin 1 - 2 tab PO PRN PRN 03/16/14 06/18/21 lisinopril 20 mg PO DAILY 12/02/14 06/18/21 ibuprofen 600 mg PO TID PRN 10/18/18 06/18/21 azithromycin See Rx Instructions .ROUTE 06/18/21 .COMPLEX 6 Days #6 tab Previous Rx's Medication Instructions Recorded azithromycin See Rx Instructions .ROUTE 06/18/21 .COMPLEX 6 Days #6 tab Allergies Allergy/AdvReac Type Severity Reaction Status Date / Time No Known Allergies Allergy Verified 06/18/21 15:12 General Stated Complaint: GenMedical ALEXANDR: 2 Review of Systems All systems reviewed & are unremarkable except as noted in HPI and below Cardiovascular Cardiovascular: Reports dyspnea Respiratory Respiratory: Reports chest congestion, Reports cough, Denies hemoptysis, Reports excessive phlegm production and Reports dyspnea Gastrointestinal Gastrointestinal: Denies diarrhea, Denies nausea and Denies vomiting PFSH All Active Problems (Updated 06/18/21 @ 17:42 by Dottie Ware) URI (upper respiratory infection) (Acute) Thyroid nodule (Acute) Hypertension (Chronic) Anxiety (Chronic) Elevated liver enzymes (Acute) Medical History Hypertension Surgical History Colonoscopy - MAC (02/03/16) Social History Smoking/Tobacco Use Status: Former Tobacco Use Smoking risk assessment performed?: Yes Alcohol Intake: current Alcohol Intake frequency: 3 or more drinks per day Alcohol type: beer Drug use: Never Substance use type: does not use Do you feel safe at home: Yes Do you feel safe in your relationship?: Yes Exam Narrative Exam Narrative: Constitutional: Alert and oriented x3. Appears stated age. Normal body habitus. Head: Normocephalic, no trauma. Eyes: Pupils PERRL, Red reflex noted, EOM's intact. Eyelids symmetrical without lesions, discharge, or swelling. ENT: Bilateral TM's WNL, External ear normal to inspection, no mastoid TTP, swelling, or erythema, Nasal turbinates WNL, no nasal discharge. Normal dentition, Posterior pharynx WNL, no exudate. Chest: Tachycardic and hypertensive normal S1, S2, distal pulses intact. Resp: Lungs clear to auscultation bilaterally, no wheezes, rales, or rhonchi. Abdomen: Soft, non-distended, Normoactive bowel sounds all 4 quads. Musculoskeletal: Normal gait, 5/5 strength to all four extremities. Skin: No suspicious rashes or lesions. Capillary refill less than 2 sec. Neurologic: Cranial nerves II-XII intact. Alert and oriented x 3. Motor: No deficits noted. Sensory: Intact bilaterally all 4 extremities. Reflexes: DTR's intact bilaterally.. Hematologic/Lymphatic: No ecchymosis, no lymphadenopathy. Course Vital Signs Vital signs: Vital Signs Temperature 37.1 C 06/18/21 15:05 Pulse 117 H 06/18/21 15:05 Respiratory Rate 27 H 06/18/21 15:05 Blood Pressure 178/112 H 06/18/21 15:05 Pulse Oximetry 96 06/18/21 15:05 Temperature 37.1 C 06/18/21 15:05 Temperature Source Temporal Artery Scan 06/18/21 15:05 Pulse 117 H 06/18/21 15:05 Respiratory Rate 27 H 06/18/21 15:05 Respiratory Effort Non-Labored 06/18/21 15:15 Blood Pressure 178/112 H 06/18/21 15:05 Blood Pressure Position Sitting 06/18/21 15:05 Pulse Oximetry 96 06/18/21 15:05 Oxygen Delivery Method Room Air 06/18/21 15:05 Oxygen Flow Rate 0 06/18/21 15:05 Pain Level 0 06/18/21 15:05 PAWSS Have you Been Recently Intoxicated or Drunk Within the Last 30 days?: Yes Have you Ever Experienced Previous Episodes of Alcohol Withdrawal?: No Have you ever Experienced Withdrawal Seizures?: No Have you ever Experienced Delirium Tremens(DT)s?: Yes Have you ever undergone Alcohol Rehabilitation Treatment (i.e, inpt ot outpatient treatment programs)?: No Have you ever Experienced Blackouts?: No Have you ever Combined Alcohol with other Downers within the last 90 days?: No Have you ever Combined Alcohol with any other Substance of Abuse during the last 90 days?: No Positive Blood Alcohol level on Presentation? [PCS.BAL]: No Evidence of Increased Autonomic Activity (i.e. HR>120, tremor, sweating, agitation, nausea)?: No Result: 2
[2021-06-18 15:29] LABS: Abs Immature Grans 0.04 10^3/uL (0.0-0.06); Absolute Basophil Count 0.06 10^3/uL (0.0-0.2); Absolute Eosinophil Count 0.07 10^3/uL (0.0-0.7); Absolute Lymphocyte Count 1.34 10^3/uL (1.2-3.4); Absolute Neutrophil Count 6.33 10^3/uL (1.2-6.7); Basophils % 0.7; Eosinophils % 0.8; HCT 44.9 % (40.0-50.0); HGB 15.1 g/dL (13.5-17.5); Immature Grans % 0.5; Lymphocytes % 16.1; MCH 30.6 pg (27.0-33.0); MCHC 33.6 % (32.0-36.0); MCV 90.9 fL (80-95); MPV 10.2 fL (8.0-11.0); Neutrophils % 75.9; Nucleated RBC 0 %; Platelet Count 196 10^3/uL (130-400); RBC 4.94 10^6/uL (4.36-5.78); RDW 12.8 % (11.8-14.1); RDW-SD 42.3 fL; WBC 8.34 10^3/uL (4.4-10.8)
[2021-06-18 15:44] LABS: ALT 422 U/L (16-63); AST 226 U/L (15-37); Alkaline Phosphatase 104 U/L (46-116); BUN 12 mg/dL (7-18); Bilirubin, Total 0.3 mg/dL (0.2-1.0); CREATININE 1.1 mg/dL (0.70-1.30); Calcium 8.8 mg/dL (8.5-10.1); Chloride 104 mmol/L (98-107); Glucose 129 mg/dL (74-106); Potassium 3.7 mmol/L (3.5-5.1); Sodium 139 mmol/L (136-145); Total Protein 8.2 g/dL (6.4-8.2); Troponin I < 50 ng/L (<or=60)
[2021-06-18 15:53] LABS: Source Nasal/Nares
[2021-06-18] MEDS: Lisinopril 10 MG TAB (16:31)
[2021-06-18 16:32] LABS: COVID-19 PCR Negative (Negative)
[2021-06-18] MEDS: Omnipaque 350 MG/ML 100 ML BTL IJ (16:40)
[2021-06-18 16:45] LABS: Bilirubin Negative (Negative); Blood Negative (Negative); Clarity Clear (Clear); Glucose Negative (Negative); Ketones Negative (Negative); Leukocyte Esterase Negative (Negative); Nitrite Negative (Negative); Urobilinogen 0.2 EU/dL (Up TO 0.2)
[2021-06-18] MEDS: Normal Saline 1,000 ML 1000 ML IV (16:53)
--- NOTE | 2021-06-18 17:02 | DI.VRAD_ITS ---
PROCEDURE INFORMATION: Exam: CTA Chest With Contrast Exam date and time: 06/18/2021 3:27 PM Age: 51 years old Clinical indication: Other: SOB, cough tachycardia, R/O pe pna TECHNIQUE: Imaging protocol: Computed tomographic angiography of the chest with contrast. 3D rendering (Not supervised by radiologist): MIP and/or 3D reconstructed images were created by the technologist. Radiation optimization: All CT scans at this facility use at least one of these dose optimization techniques: automated exposure control; mA and/or kV adjustment per patient size (includes targeted exams where dose is matched to clinical indication); or iterative reconstruction. Contrast material: 350; Contrast volume: 80 ml; Contrast route: INTRAVENOUS (IV); COMPARISON: No relevant prior studies available. FINDINGS: Pulmonary arteries: No evidence of pulmonary embolus to the segmental level. Aorta: No aneurysm of the aorta. No dissection of the aorta. Thyroid: 18 mm nodule in the left lobe of the thyroid. 2.5 cm nodule in the right lobe of the thyroid. Recommend thyroid ultrasound. Lungs: Unremarkabl minimal opacities in the lingula may represent atelectasis No consolidation. No masses. Pleural spaces: Unremarkable. No pneumothorax. No pleural effusion. Heart: Unremarkable. No cardiomegaly. No pericardial effusion. Lymph nodes: Unremarkable. No enlarged lymph nodes. Bones/joints: Unremarkable. No acute fracture. Soft tissues: Unremarkable. IMPRESSION: 1. No evidence of pulmonary embolus to the segmental level. 2. 18 mm nodule in the left lobe of the thyroid. 2.5 cm nodule in the right lobe of the thyroid. Recommend thyroid ultrasound. Dictated and Authenticated by: Vivek Rudolph MD. Ordering:PATRICE Sinclair MD
[2021-06-18 17:36] LABS: TSH (W/Ref FT4) 0.68 uIU/mL (0.36-3.74)
--- NOTE | 2021-06-18 18:07 | NUR.NOTE ---
Nursing Note: Pt info given to care management to establish care and to be seen for HTN in 1-2 weeks. [place], ED
== END 2021-06-18 18:12 ==
PROVIDERS: Emergency Provider Registered Nurse Emergency; PCP Nurse Practitioner Family
DX: J06.9 Acute upper respiratory infection, unspecified (principal); E04.1 Nontoxic single thyroid nodule; Z86.16 Personal history of COVID-19; R06.02 Shortness of breath; R05.1 Acute cough; R07.9 Chest pain, unspecified; R00.0 Tachycardia, unspecified; I10 Essential (primary) hypertension
CPT/HCPCS: 71275; 80053; 87635; 93005; 96360; 99284; 99285; 81003; 83735; 84443; 84484; 85025; 93010; J3490

== ENCOUNTER 2021-08-18 10:29 | Emergency (ER) | payer MEDICAID, SELFPAY ==
--- NOTE | 2021-08-18 10:45 | RT.EKG_ITS ---
APPROVED REPORT Exam: Resting ECG Reason for Exam: anxiety/stress Patient Location: E HR:90 bpm ECG Measurements Heart Rate 90 AXIS SD 172 P 61 QRSd 99 QRS 32 QT 361 T 24 QTc 442 Conclusion Sinus rhythm...normal P axis, V-rate 60- 99
[2021-08-18 10:46] VITALS: BP 172/112; PULSE 96; RESP 16; TEMP 36.4; O2SAT 97
[2021-08-18 12:52] LABS: Abs Immature Grans 0.02 10^3/uL (0.0-0.06); Absolute Basophil Count 0.06 10^3/uL (0.0-0.2); Absolute Eosinophil Count 0.17 10^3/uL (0.0-0.7); Absolute Lymphocyte Count 1.47 10^3/uL (1.2-3.4); Eosinophils % 2.7; HCT 41.6 % (40.0-50.0); HGB 14.2 g/dL (13.5-17.5); Immature Grans % 0.3; Lymphocytes % 23.6; MCH 30.9 pg (27.0-33.0); MCHC 34.1 % (32.0-36.0); MCV 90.4 fL (80-95); MPV 10.4 fL (8.0-11.0); Neutrophils % 64.4; Nucleated RBC 0 %; Platelet Count 152 10^3/uL (130-400); RDW 12.4 % (11.8-14.1); RDW-SD 40.5 fL; WBC 6.22 10^3/uL (4.4-10.8)
[2021-08-18 12:56] LABS: ALT 135 U/L (16-63); AST 87 U/L (15-37); Albumin 3.9 g/dL (3.4-5.0); Alkaline Phosphatase 89 U/L (46-116); Anion Gap 9.6 mmol/L (3-11); BUN 15 mg/dL (7-18); Bilirubin, Total 0.5 mg/dL (0.2-1.0); CO2 25.4 mmol/L (21.0-32.0); CREATININE 1.1 mg/dL (0.70-1.30); Calcium 8.4 mg/dL (8.5-10.1); Chloride 106 mmol/L (98-107); Glucose 101 mg/dL (74-106); Lipase 229 U/L (73-393); Magnesium 2.1 mg/dL (1.8-2.4); Potassium 4.3 mmol/L (3.5-5.1); Sodium 141 mmol/L (136-145); TSH (W/Ref FT4) 0.62 uIU/mL (0.36-3.74); Total Protein 7.7 g/dL (6.4-8.2); Troponin I < 50 ng/L (<or=60)
--- NOTE | 2021-08-18 13:10 | ED.GENADUL_ITS ---
Discharge Plan Disposition Patient Disposition: HOME Condition: Stable Discharge Details Clinical Impression: History of recurrent psychosocial stressors Primary Care Provider: CHRIS TAVARES ED Provider: Pavithra Rebolledo Home Meds and New Rx's Prescriptions: Continued aspirin 325 MG tablet 1 - 2 tab PO PRN PRN0RF lisinopril 40 MG tablet 20 mg PO DAILY 0RF ibuprofen 600 mg Tablet 600 mg PO TID PRN0RF Discharge Instructions Additional Instructions: Please follow-up with your primary care physician in 1 to 2 days for reassessment You are doing a great job of limiting alcohol consumption and it is helping with your liver enzymes I have ordered an outpatient ultrasound to evaluate your thyroid nodule, please follow-up with your doctor regarding this Talk to your doctor also about going on an anxiety medication, there are lots of different options that may work better for you Please return earlier should you have any new or worsening complaints Referrals: CHRIS TAVARES, SPINNING LATHE OPERATOR [Primary Care Provider] - Discharge Data Discharge Date/Time-TO BE ENTERED AT DEPARTURE: 08/18/21 13:30 Medical Decision Making Patient appears well although his blood pressure is quite elevated, he will need follow-up regarding this finding he is also quite anxious on my assessment I did confirm the need for an outpatient ultrasound of his thyroid and that this likely was not causing his acute symptoms other secondary to his anxiety regarding having an ultrasound done after a CT scan performed that showed thyroid nodules, this was ordered for the patient in the outpatient setting I offered mental health assessment in the emergency department and he said he is a counselor in the outpatient setting he does not want to start on any Ativan at this time He would like to talk to PCP regarding possible SSRI or SNRI treatment for anxiety lft's mildly elevated, although dramatically improved from previous assessment Patient is alert, oriented, has a good support system, declined speaking with counselor Discharged home in stable condition although hypertensive, asymptomatic with this finding Medical Records Medical records reviewed: Yes I reviewed the patient's medical records. Lab Data Lab results reviewed: Yes I reviewed the patient's lab results. HPI General Date/Time Provider Initiated Documentation: 08/18/21 11:34 . HPI Narrative: This 51-year-old male presents with report of increasing anxiety. 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 He denies any chest pain or shortness of breath. He does feel a sense of restlessness. He is quite concerned about some thyroid nodules that were previously seen on CT scan as an incidental finding. He confirmed his did not receive an ultrasound for these. He denies any medications. He did decrease his alcohol consumption. He denies tobacco use. Denies any illicit drug use. He denies any suicidal or homicidal ideation. He does have a counselor but she has not followed up with her. Of time. His PCP also retired and he is yet to establish with new PCP. Denies any additional complaints at this time. Related Data Home Medications Medication Instructions Recorded Confirmed aspirin 325 mg tablet 1 - 2 tab PO PRN PRN 03/16/14 08/18/21 lisinopril 40 mg tablet 20 mg PO DAILY 12/02/14 08/18/21 ibuprofen 600 mg tablet 600 mg PO TID PRN 10/18/18 08/18/21 Allergies Allergy/AdvReac Type Severity Reaction Status Date / Time No Known Allergies Allergy Verified 08/18/21 10:54 General Stated Complaint: Anxiety ALEXANDR: 3 Review of Systems All systems reviewed & are unremarkable except as noted in HPI and below PFSH All Active Problems (Updated 07/19/21 @ 00:04 by GARETH CLAY) History of recurrent psychosocial stressors (Acute) Hypertension (Chronic) Anxiety (Chronic) Elevated liver enzymes (Acute) Medical History Hypertension Surgical History Colonoscopy - MAC (02/03/16) Social History Smoking/Tobacco Use Status: Former Tobacco Use Quit Date: 05/15/14 Smoking risk assessment performed?: Yes Alcohol Intake: current Alcohol Intake frequency: 3 or more drinks per day Alcohol type: beer Drug use: Never Substance use type: does not use Do you feel safe at home: Yes Do you feel safe in your relationship?: Yes Exam Const General: cooperative, comfortable and anxious Eyes Sclera: sclerae normal Resp Effort & Inspection: normal respiratory effort Auscultation: clear to auscultation bilaterally Cardio Rate: regular rate Rhythm: regular rhythm GI Inspection: normal to inspection Skin General skin exam: no rashes or lesions noted Neuro General: patient alert and patient oriented x3 Cranial Nerves: CN's II-XI intact bilaterally Sensory Exam: no sensory deficits noted Course Vital Signs Vital signs: Vital Signs Temperature 36.4 C L 08/18/21 10:46 Pulse 96 H 08/18/21 10:46 Respiratory Rate 16 08/18/21 10:46 Blood Pressure 172/112 H 08/18/21 10:46 Pulse Oximetry 97 08/18/21 10:46 Temperature 36.4 C L 08/18/21 10:46 Temperature Source Skin 08/18/21 10:46 Pulse 96 H 08/18/21 10:46 Respiratory Rate 16 08/18/21 10:46 Respiratory Effort 08/18/21 10:55 Blood Pressure 172/112 H 08/18/21 10:46 Blood Pressure Position Sitting 08/18/21 10:46 Pulse Oximetry 97 08/18/21 10:46 Oxygen Delivery Method Room Air 08/18/21 10:46 Oxygen Flow Rate 0 08/18/21 10:46 Pain Level 5 08/18/21 10:46 Lab/Test Results Lab/Test Results: Laboratory Tests Range/Units 08/18/21 08/18/21 08/18/21 12:25 12:25 12:25 WBC (4.4-10.8) 10^3/uL 6.22 RBC (4.36-5.78) 10^6/uL 4.60 Hgb (13.5-17.5) g/dL 14.2 Hct (40.0-50.0) % 41.6 MCV (80-95) fL 90.4 MCH (27.0-33.0) pg 30.9 MCHC (32.0-36.0) % 34.1 RDW (11.8-14.1) % 12.4 Plt Count (130-400) 10^3/uL 152 MPV (8.0-11.0) fL 10.4 Immature Gran % 0.3 Neutrophils % 64.4 Lymphocytes % 23.6 Monocytes % 8.0 Eosinophils % 2.7 Basophils % 1.0 Nucleated RBC % % 0 Absolute Neutrophils (1.2-6.7) 10^3/uL 4.00 Absolute Lymphocytes (1.2-3.4) 10^3/uL 1.47 Absolute Monocytes (0.1-0.8) 10^3/uL 0.50 Absolute Eosinophils (0.0-0.7) 10^3/uL 0.17 Absolute Basophils (0.0-0.2) 10^3/uL 0.06 Sodium Cancelled 141 Potassium Cancelled 4.3 Chloride Cancelled 106 Carbon Dioxide Cancelled 25.4 Anion Gap Cancelled 9.6 BUN Cancelled 15 Creatinine Cancelled 1.1 Estimated GFR/1.73 m2 Cancelled >= 60.00 Glucose Cancelled 101 Calcium Cancelled 8.4 L Magnesium (1.8-2.4) mg/dL 2.1 Total Bilirubin Cancelled 0.5 AST Cancelled 87 H ALT Cancelled 135 H Alkaline Phosphatase Cancelled 89 Troponin I (<or=60) ng/L < 50 Total Protein Cancelled 7.7 Albumin Cancelled 3.9 Lipase (73-393) U/L 229 TSH (0.36-3.74) uIU/mL 0.62 PAWSS Have you Been Recently Intoxicated or Drunk Within the Last 30 days?: No Have you Ever Experienced Previous Episodes of Alcohol Withdrawal?: No Have you ever Experienced Withdrawal Seizures?: No Have you ever Experienced Delirium Tremens(DT)s?: No Have you ever undergone Alcohol Rehabilitation Treatment (i.e, inpt ot outpatient treatment programs)?: No Have you ever Experienced Blackouts?: No Have you ever Combined Alcohol with other Downers within the last 90 days?: No Have you ever Combined Alcohol with any other Substance of Abuse during the last 90 days?: No Positive Blood Alcohol level on Presentation? [PCS.BAL]: No Evidence of Increased Autonomic Activity (i.e. HR>120, tremor, sweating, agitation, nausea)?: No Result: 0
[2021-08-18 13:18] VITALS: BP 159/107; PULSE 85; RESP 16; TEMP 36.5; O2SAT 98
[2021-08-18 13:29] VITALS: BP 159/107; PULSE 85; RESP 16; TEMP 36.5; O2SAT 98
== END 2021-08-18 13:30 | disposition home or self-care (01) ==
PROVIDERS: Emergency Provider Physician Assistant; PCP Nurse Practitioner Family
DX: F41.9 Anxiety disorder, unspecified (principal); Z73.3 Stress, not elsewhere classified; Z65.8 Other specified problems related to psychosocial circumstances; I10 Essential (primary) hypertension; E04.2 Nontoxic multinodular goiter
CPT/HCPCS: 80053; 83690; 93005; 99283; 83735; 84443; 84484; 85025; 93010

== ENCOUNTER → 2021-09-22 00:38 | Outpatient (CLI) | payer MEDICAID, SELFPAY ==
--- NOTE | 2021-09-22 | DI.US_ITS ---
Exam(s) US THYROID EXAM: US THYROID CLINICAL HISTORY: NODULES, F/U ABNL CT. TECHNIQUE: Ultrasound thyroid performed using standard protocol. COMPARISON: No exams were available for comparison FINDINGS: ISTHMUS: 5 mm RIGHT LOBE: Size: 5.3 x 1.9 x 3 cm Echogenicity: Normal. Vascularity: Normal. Nodules: 1. Superior pole: 1.5 x 1.0 x 1.3 centimeter solid isoechoic nodule smoothly marginated with macroca lcifications, TR 4. 2. Superior pole: 1.5 x 0.9 x by 1.2 cm solid isoechoic nodule, TR 3. 3. Lower pole: 1.4 x 0.9 x 1.3 centimeters solid a isoechoic nodule with smooth margins, TR 3. . LEFT LOBE: Size: 5.7 x 2.2 x 2.1 cm Echogenicity: Normal. Vascularity: Normal. Nodules: Mid thyroid: 1.3 x 0.9 x 1.1 centimeter mixed cystic and solid nodule, smoothly marginated. The solid component is vascular. TR 2. Mid to lower pole: 2.2 x 1.6 x 1.6 centimeter isoechoic nodule, smoothly marginated with macrocalcifi cations. TR 3. Lower pole: 2.2 x 1.8 x 1.7 solid smoothly marginated isoechoic nodule, TR 3 OTHER FINDINGS: None. IMPRESSION: Multi nodular thyroid. No highly suspicious nodules. Consider follow-up. DATA REPOSITORY:
== END ==
PROVIDERS: PCP Nurse Practitioner Family; Visit Provider Physician Assistant
DX: E04.2 Nontoxic multinodular goiter (principal)
CPT/HCPCS: 76536

== ENCOUNTER 2022-08-11 19:44 | Emergency (ER) | payer MEDICAID, SELFPAY ==
[2022-08-11] VITALS (29 sets, daily range): BP systolic 163–187; BP diastolic 107–131; PULSE 100–125; RESP 4–27; TEMP 36.9; O2SAT 88–97
--- NOTE | 2022-08-11 19:45 | RT.EKG_ITS ---
APPROVED REPORT Exam: Resting ECG Reason for Exam: SOB Patient Location: E HR:115 bpm ECG Measurements Heart Rate 115 AXIS WI 174 P 51 QRSd 98 QRS 41 QT 322 T 29 QTc 445 Conclusion Sinus tachycardia...rate> 99 Sinus tachycardia at a rate of 118. Left axis deviation no signs of LVH based on voltage criteria. WI and QTc within normal limits. Appears similar to prior dated earlier this evening.
[2022-08-11] MEDS: methylPREDNISolone SUCC 125 MG VIAL 80 MG IVP (20:16)
[2022-08-11] MEDS: Lactated Ringers 1,000 ML 1000 ML IV (20:18)
[2022-08-11 20:20] LABS: Abs Immature Grans 0.05 10^3/uL (0.0-0.06); Absolute Basophil Count 0.05 10^3/uL (0.0-0.2); Absolute Eosinophil Count 0.21 10^3/uL (0.0-0.7); Absolute Monocyte Count 0.69 10^3/uL (0.1-0.8); Absolute Neutrophil Count 4.36 10^3/uL (1.2-6.7); Basophils % 0.7; HCT 44.1 % (40.0-50.0); HGB 15.5 g/dL (13.5-17.5); Immature Grans % 0.7; Lymphocytes % 24.1; MCH 31.1 pg (27.0-33.0); MCHC 35.1 % (32.0-36.0); MCV 88 fL (80-95); MPV 10.2 fL (8.0-11.0); Monocytes % 9.8; Neutrophils % 61.7; Platelet Count 155 10^3/uL (130-400); RBC 4.99 10^6/uL (4.36-5.78); RDW 12.8 % (11.8-14.1); RDW-SD 41.4 fL; WBC 7.06 10^3/uL (4.4-10.8)
--- NOTE | 2022-08-11 20:30 | DI.RAD_ITS ---
Exam(s) XR CHEST 2V PA LATERAL EXAM: XR CHEST 2V PA LATERAL CLINICAL HISTORY: cough, shortness of breath TECHNIQUE: 2D digital imaging was performed. COMPARISON: No exams were available for comparison FINDINGS: Multiple leads overlie the chest. HEART: Normal size. Aorta: Not dilated. PULMONARY VASCULATURE: Normal. LUNGS: Fibrotic changes. No focal infiltrate. PLEURAL SPACE: No pleural effusion or pneumothorax. BONE:Degenerative changes in the spine. IMPRESSION: No acute abnormality. DATA REPOSITORY: RADIATION DOSE DELIVERED:
[2022-08-11 20:31] LABS: ALT 207 U/L (16-63); AST 122 U/L (15-37); Alkaline Phosphatase 100 U/L (46-116); Anion Gap 10.6 mmol/L (3-11); BUN 13 mg/dL (7-18); Bilirubin, Total 0.5 mg/dL (0.2-1.0); CO2 25.4 mmol/L (21.0-32.0); CREATININE 1.1 mg/dL (0.70-1.30); Calcium 9.1 mg/dL (8.5-10.1); Chloride 104 mmol/L (98-107); Estimated GFR 80.77 (mL/min/1.73m2); Glucose 118 mg/dL (74-106); Potassium 3.6 mmol/L (3.5-5.1); Sodium 140 mmol/L (136-145); Total Protein 8.1 g/dL (6.4-8.2); Troponin I < 50 ng/L (<or=60)
[2022-08-11] MEDS: Lisinopril 20 MG TAB PO (20:35)
[2022-08-11] MEDS: Acetaminophen 325 MG TAB 650 MG PO (20:35)
[2022-08-11 20:49] LABS: COVID-19 PCR Negative (Negative); Influenza A PCR Negative (Negative); Influenza B PCR Negative (Negative); RSV PCR Negative (Negative)
[2022-08-11 20:51] LABS: Source Nasopharynx
--- NOTE | 2022-08-11 20:51 | W.ED.GENAD ---
Discharge Plan Disposition Patient Disposition: Home Condition: Stable Discharge Details Clinical Impression: Bronchitis Primary Care Provider: CHRIS TAVARES ED Provider: Pavithra Rebolledo Home Meds and New Rx's Prescriptions: New albuterol sulfate 90 mcg/actuation aero powdr breath act w/sensor 2 inh inhalation Q6H Qty: 1 0RF doxycycline hyclate 100 mg capsule 100 mg PO BID Qty: 14 0RF prednisone 20 mg tablet 40 mg PO DAILY Qty: 10 0RF lisinopril 20 mg tablet 20 mg PO DAILY Qty: 30 0RF Continued aspirin 325 MG tablet 1 - 2 tab PO PRN PRN lisinopril 40 MG tablet 20 mg PO DAILY ibuprofen 600 mg Tablet 600 mg PO TID PRN Discharge Instructions Instructions: Acute Bronchitis (ED) Additional Instructions: Using inhaler as prescribed 2 puffs every 4-6 hours as needed for cough, wheeze, shortness of breath Make sure you start your lisinopril, your blood pressure is very high I am giving you a prescription for lisinopril, make sure to start this start taking this steroid use the antibiotic as prescribed yogurt daily while on antibiotics return earlier with new or worsening complaints please follow-up with primary care physician in 2-3 days for reassessment Referrals: CHRIS TAVARES, PHARMACY SERVICE ASSOCIATE [Primary Care Provider] - Discharge Data Discharge Date/Time-TO BE ENTERED AT DEPARTURE: 08/11/22 22:59 Medical Decision Making This 52-year-old gentleman presents with cough, wheeze, shortness of breath, in the absence of chest pain Chest x-ray does not show evidence of acute abnormality per radiology interpretation and my review Diagnostic labs within normal limits for patient Of note, patient was tachycardic throughout this encounter, he has a history of tachycardia when compared to prior evaluations He received 2 DuoNebs which improved his wheezing and files marked improvement at time of discharge home Repeat oxygen saturation 94% on room air, ambulatory sat 95% I did consider pulmonary embolism, however patient has no pleuritic pain, and is quite low risk for pulmonary embolism He is presenting with infectious etiology of symptoms and he has a significant other with similar presentation We will treat with prednisone, albuterol, and doxycycline as patient does smoke tobacco He will need close outpatient reassessment in 24 to 48 hours Quite low threshold to return should he have new or worsening complaints Medical Records Medical records reviewed: Yes I reviewed the patient's medical records. Lab Data Lab results reviewed: Yes I reviewed the patient's lab results. HPI General Date/Time Provider Initiated Documentation: 08/11/22 19:45. HPI Narrative: This 52-year-old male presents with report of cough, shortness of breath, and congestion for the past 2 days. Reports that his significant other is sick with similar symptoms. Denies any filbert fever but has had chills and myalgias per patient. Took Tylenol prior to arrival. Does smoke tobacco. Denies any illicit drug use. Drinks alcohol on a daily basis. Denies hemoptysis or chest discomfort. Denies any headache. Denies any calf pain or swelling, recent flights, surgeries, long drives, or history of exogenous hormones. Patient reports that he has not taken his antihypertensive medication for the past 2 weeks secondary to refill error per patient. Related Data Home Medications Medication Instructions Recorded Confirmed aspirin 325 mg tablet 1 - 2 tab PO PRN PRN 03/16/14 08/11/22 lisinopril 40 mg tablet 20 mg PO DAILY 12/02/14 08/11/22 ibuprofen 600 mg tablet 600 mg PO TID PRN 10/18/18 08/11/22 albuterol sulfate 90 mcg/actuation 2 inh inhalation Q6H #1 ea 08/11/22 breath activated powder inhaler,sensor doxycycline hyclate 100 mg capsule 100 mg PO BID #14 caps 08/11/22 lisinopril 20 mg tablet 20 mg PO DAILY #30 tabs 08/11/22 prednisone 20 mg tablet 40 mg PO DAILY #10 tabs 08/11/22 Previous Rx's Medication Instructions Recorded albuterol sulfate 90 mcg/actuation 2 inh inhalation Q6H #1 ea 08/11/22 breath activated powder inhaler,sensor doxycycline hyclate 100 mg capsule 100 mg PO BID #14 caps 08/11/22 lisinopril 20 mg tablet 20 mg PO DAILY #30 tabs 08/11/22 prednisone 20 mg tablet 40 mg PO DAILY #10 tabs 08/11/22 Allergies Allergy/AdvReac Type Severity Reaction Status Date / Time No Known Allergies Allergy Verified 08/18/21 10:54 General Stated Complaint: RespSymp ALEXANDR: 3 PFSH All Active Problems (Updated 08/11/22 @ 22:31 by Pavithra Amaury, PA) Bronchitis (Acute) Hypertension (Chronic) Anxiety (Chronic) Elevated liver enzymes (Acute) Medical History Hypertension Surgical History Colonoscopy - MAC (02/03/16) Social History Smoking/Tobacco Use Status: Former Tobacco Use Quit Date: 05/15/14 Smoking risk assessment performed?: Yes Alcohol Intake: current Alcohol Intake frequency: 3 or more drinks per day Alcohol type: beer Drug use: Never Substance use type: does not use Do you feel safe at home: Yes Do you feel safe in your relationship?: Yes Exam Const General: cooperative, comfortable and no acute distress Eyes Sclera: sclerae normal Pupils: PERRL Resp Effort & Inspection: normal respiratory effort Auscultation: wheezes Cardio Rate: tachycardic Rhythm: regular rhythm GI Inspection: normal to inspection Skin General skin exam: no rashes or lesions noted Neuro General: patient alert and patient oriented x3 Course Vital Signs Vital signs: Vital Signs Temperature 36.9 C 08/11/22 19:47 Pulse 121 H 08/11/22 19:47 Respiratory Rate 24 08/11/22 19:47 Blood Pressure 182/124 H 08/11/22 19:47 Pulse Oximetry 95 08/11/22 19:47 Temperature 36.9 C 08/11/22 19:47 Temperature Source Oral 08/11/22 19:47 Pulse 109 H 08/11/22 20:17 Respiratory Rate 21 08/11/22 20:17 Blood Pressure 182/124 H 08/11/22 19:47 Blood Pressure Position Sitting 08/11/22 19:47 Pulse Oximetry 94 08/11/22 20:17 Oxygen Delivery Method Room Air 08/11/22 20:17 Oxygen Flow Rate 0 08/11/22 20:17 Pain Level 0 08/11/22 19:47 Lab/Test Results Lab/Test Results: Laboratory Tests Range/Units 08/11/22 08/11/22 20:05 20:05 WBC (4.4-10.8) 10^3/uL 7.06 RBC (4.36-5.78) 10^6/uL 4.99 Hgb (13.5-17.5) g/dL 15.5 Hct (40.0-50.0) % 44.1 MCV (80-95) fL 88 MCH (27.0-33.0) pg 31.1 MCHC (32.0-36.0) % 35.1 RDW (11.8-14.1) % 12.8 Plt Count (130-400) 10^3/uL 155 MPV (8.0-11.0) fL 10.2 Immature Gran % 0.7 Neutrophils % 61.7 Lymphocytes % 24.1 Monocytes % 9.8 Eosinophils % 3.0 Basophils % 0.7 Nucleated RBC % (0.0-0.3) % 0.0 Absolute Neutrophils (1.2-6.7) 10^3/uL 4.36 Absolute Lymphocytes (1.2-3.4) 10^3/uL 1.70 Absolute Monocytes (0.1-0.8) 10^3/uL 0.69 Absolute Eosinophils (0.0-0.7) 10^3/uL 0.21 Absolute Basophils (0.0-0.2) 10^3/uL 0.05 Sodium (136-145) mmol/L 140 Potassium (3.5-5.1) mmol/L 3.6 Chloride (98-107) mmol/L 104 Carbon Dioxide (21.0-32.0) mmol/L 25.4 Anion Gap (3-11) mmol/L 10.6 BUN (7-18) mg/dL 13 Creatinine (0.70-1.30) mg/dL 1.1 Est GFR (CKD-EPI 2020) (mL/min/1.73m2) 80.77 Glucose (74-106) mg/dL 118 H Calcium (8.5-10.1) mg/dL 9.1 Total Bilirubin (0.2-1.0) mg/dL 0.5 AST (15-37) U/L 122 H ALT (16-63) U/L 207 H Alkaline Phosphatase (46-116) U/L 100 Troponin I (<or=60) ng/L < 50 Total Protein (6.4-8.2) g/dL 8.1 Albumin (3.4-5.0) g/dL 4.0
--- NOTE | 2022-08-11 21:01 | DI.VRAD_ITS ---
PROCEDURE INFORMATION: Exam: XR Chest Exam date and time: 08/11/2022 8:53 PM Age: 52 years old Clinical indication: Shortness of breath; Additional info: SOB TECHNIQUE: Imaging protocol: Radiologic exam of the chest. Views: 2 views. COMPARISON: CT CHEST PE CTA 06/18/2021 4:39 PM FINDINGS: Lungs: Minimal subsegmental atelectasis No consolidation. Pleural spaces: Unremarkable. No pleural effusion. No pneumothorax. Heart/Mediastinum: Unremarkable. No cardiomegaly. Bones/joints: Unremarkable. IMPRESSION: No acute findings. Dictated and Authenticated by: Masood Stone MD. Ordering:LINDA Arshad MD
--- NOTE | 2022-08-11 21:15 | RT.EKG_ITS ---
APPROVED REPORT Exam: Resting ECG Reason for Exam: rhythm change Patient Location: E HR:118 bpm ECG Measurements Heart Rate 118 AXIS [place] 164 P 34 QRSd 100 QRS 15 QT 330 T 20 QTc 463 Conclusion Sinus tachycardia...rate> 99 sinus tachycardia, normal axis, normal intervals, non ischemic
[2022-08-11 21:54] LABS: Magnesium 1.9 mg/dL (1.8-2.4); TSH (W/Ref FT4) 1.11 uIU/mL (0.36-3.74)
[2022-08-11] MEDS: Albuterol HFA 8 GM 60 PUFF INH IH (22:47)
[2022-08-11] MEDS: Inhaler, Assist Device 1 EACH MC (22:47)
[2022-08-11] MEDS: Doxycycline Hyclate 100 MG, 2 CAPS/BTL PO (22:54)
--- NOTE | 2022-08-14 10:45 | NUR.NOTE ---
Nursing Note: Accessed pt chart to determine how many EKG orders were done.
== END 2022-08-11 22:59 | disposition home or self-care (01) ==
PROVIDERS: Emergency Provider Physician Assistant; PCP Nurse Practitioner Family
DX: J40 Bronchitis, not specified as acute or chronic (principal); R00.0 Tachycardia, unspecified; I10 Essential (primary) hypertension; Z79.82 Long term (current) use of aspirin; Z20.822 Contact with and (suspected) exposure to COVID-19; Z87.891 Personal history of nicotine dependence
CPT/HCPCS: 36415; 80053; 87637; 93005; 94640; 96361; 96374; 99284; 71046; 83735; 84443; 84484; 85025; 93010; J2930; J7613; J7644

== ENCOUNTER 2024-10-08 14:03 | Outpatient (REF) | payer MEDICAID, SELFPAY ==
[2024-10-08 14:00] LABS: HCT 44.4 % (40.0-50.0); HGB 15.4 g/dL (13.5-17.5); MCH 31.8 pg (27.0-33.0); MCHC 34.7 % (32.0-36.0); MCV 92 fL (80-95); MPV 10.6 fL (8.0-11.0); Platelet Count 124 10^3/uL (130-400); RBC 4.84 10^6/uL (4.36-5.78); RDW-SD 40.8 fL; WBC 4.27 10^3/uL (4.4-10.8)
[2024-10-08 14:26] LABS: COMMENT (LAB VIEW ONLY) 155.36 mg/dL; Microalb ug/mg Crea 7.5 ug/mg Cr
[2024-10-08 14:31] LABS: Hemoglobin A1C 5.2 % (<5.7)
[2024-10-08 14:34] LABS: ALT 364 U/L (16-63); AST 222 U/L (15-37); Albumin 3.8 g/dL (3.4-5.0); Alkaline Phosphatase 155 U/L (46-116); Anion Gap 9.1 mmol/L (3-11); BUN 13 mg/dL (7-18); Bilirubin, Total 0.4 mg/dL (0.2-1.0); CO2 26.9 mmol/L (21.0-32.0); CREATININE 1.1 mg/dL (0.70-1.30); Calcium 8.9 mg/dL (8.5-10.1); Chloride 103 mmol/L (98-107); Estimated GFR 79.77 (mL/min/1.73m2); Glucose 147 mg/dL (74-106); Potassium 4.2 mmol/L (3.5-5.1); Sodium 139 mmol/L (136-145); TSH (W/Ref FT4) 1.27 uIU/mL (0.36-3.74); Total Protein 7.8 g/dL (6.4-8.2)
== END 2024-10-08 14:04 | disposition home or self-care (01) ==
LOC: NCHCN 14:03
PROVIDERS: PCP Nurse Practitioner Family; Visit Provider Nurse Practitioner Family
DX: I10 Essential (primary) hypertension (principal); F41.9 Anxiety disorder, unspecified; K76.0 Fatty (change of) liver, not elsewhere classified; Z68.32 Body mass index [BMI] 32.0-32.9, adult
CPT/HCPCS: 80053; 85027; 82043; 82570; 83036; 84443